=== PATIENT | female | born 1955 ===

== ENCOUNTER 2020-01-06 09:30 | Day surgery (SDC) | payer BC ==
[~2020-01-06 09:30] MED LIST: Acetaminophen 500 MG Tab PO ONE; Gabapentin 300 MG Cap PO ONE; Sodium Chloride 0.9% 10 ML Syringe FLUSH PRN
[2020-01-06] MEDS ORDERED: Midazolam 1 MG/ML 2 ML SDV IV ONE (09:31)
[2020-01-06] MEDS ORDERED: Ketamine 500 mg/10 ML MDV IV ONE (09:31)
[2020-01-06] MEDS ORDERED: Dexamethasone 4 MG/ML 5 ML MDV IVPUSH ONE (09:31)
[2020-01-06] MEDS ORDERED: Propofol 200 MG/20 ML SDV IV ONE (09:31)
[2020-01-06] MEDS ORDERED: Dexmedetomidine 200 MCG/2 ML SDV IV ONE (09:31)
[2020-01-06] MEDS ORDERED: Rocuronium 100 MG/10 ML MDV IV ONE (09:31)
[2020-01-06] MEDS ORDERED: Lidocaine 2% 5 ML SDV INJECT ONE (09:31)
[2020-01-06] MEDS ORDERED: Ondansetron 4 MG/2 ML SDV IVPUSH ONE (09:31)
[2020-01-06] MEDS ORDERED: Phenylephrine 1% 10 MG/ML SDV IV ONE (09:31)
[2020-01-06] MEDS ORDERED: HYDROmorphone 2 MG/ML SDV IV ONE (09:31)
[2020-01-06] MEDS ORDERED: fentaNYL 100 MCG/2 ML SDV IV ONE (09:31)
[2020-01-06] MEDS ORDERED: Lactated Ringers 1,000 ML IV ONE (09:31)
[2020-01-06] MEDS ORDERED: Ketorolac 30 MG/ML SDV IVPUSH ONE (09:31)
[2020-01-06] MEDS ORDERED: ePHEDrine 50 MG/ML SDV IV ONE (09:31)
[2020-01-06] MEDS: Lactated Ringers 1,000 ML IV SCH ×2 (10:52→20:10)
[2020-01-06] MEDS ORDERED: Ropivacaine 49.25 ML, Ketorolac 30 MG, EPINEPHrine 0.5 MG, cloNIDine 80 MCG, Sodium Chl... INJECT SCH ×5 (11:00)
[2020-01-06] MEDS ORDERED: Tranexamic Acid 3,000 MG, Sodium Chloride 0.9% 100 ML IRR ONE ×2 (11:00)
[2020-01-06] MEDS ORDERED: Scopolamine 1.5 MG Transdermal Patch TOP ONE (11:00)
[2020-01-06] MEDS ORDERED: ceFAZolin 2 GM in Premix Bag 1 BAG IV ONE (11:30)
[2020-01-06] MEDS ORDERED: Magnesium Hydroxide 400 MG/5 ML Susp 30 ML Cup PO PRN (12:24)
[2020-01-06] MEDS ORDERED: Ondansetron 4 MG/2 ML SDV IVPUSH PRN (12:24)
[2020-01-06] MEDS ORDERED: Sennosides 8.6 MG Tab PO PRN (12:24)
[2020-01-06] MEDS ORDERED: Naloxone 0.4 MG/ML SDV IVPUSH PRN (12:24)
[2020-01-06] MEDS ORDERED: Sodium Chloride 0.9% 10 ML Syringe FLUSH PRN (12:24)
[2020-01-06] MEDS ORDERED: Morphine 2 MG/ML SYRINGE IVPUSH PRN (12:45)
[2020-01-06] MEDS ORDERED: THROMBIN 5000 UNIT ONE ×3 (13:38→15:29)
[2020-01-06] MEDS ORDERED: Vancomycin 1 GM SDV ONE (15:36)
--- NOTE | 2020-01-06 16:27 | PCM.OPNOTE ---
- General Post-Op/Procedure Note Date of Surgery/Procedure: 01/06/20 Operative Procedure(s): tlif l4-5 Pre Op Diagnosis: spondy L4-5, foraminal stenosis L4-5, L4-5 left radiculopathy Post-Op Diagnosis: Same Anesthesia Technique: General ET Tube Primary Surgeon: Corwin Berrios Anesthesia Provider: Vicki Rico Systems Engineering Manager: Kena Bassett EBL in mLs: 500 Drain/Tube Comments:: wound vac Complications: None Condition: Good
--- NOTE | 2020-01-06 17:45 | OR ---
DATE OF OPERATION: 01/06/2020 SURGEON: Corwin Berrios DO PREOPERATIVE DIAGNOSES: 1. Spondylolisthesis, L4-5. 2. Radiculopathy, left L4-5. 3. Left foraminal stenosis, L4-5. 4. Lateral recess stenosis L4-5 secondary to disk degeneration and synovial cyst. POSTOPERATIVE DIAGNOSES: 1. Spondylolisthesis, L4-5. 2. Radiculopathy, left L4-5. 3. Left foraminal stenosis, L4-5. 4. Lateral recess stenosis L4-5 secondary to disk degeneration and synovial cyst. PROCEDURE: 1. Transforaminal lumbar interbody fusion, L4-5. 2. Laminectomy at L4-5, left required in addition to disk space preparation. 3. Interbody device placement, L4-5. 4. Posterior segmental instrumentation, L4-L5. FRONT OFFICE ADMINISTRATOR: Kena Bassett NP. Nurse practitioner, Kena Bassett NP, played an essential role in assisting in this case, helping to position the patient, retract structures as needed, as well as suturing and cutting sutures as indicated. Her presence improved patient's safety and decreased operative time. ANESTHESIA: Vicki Rico, ZINC PLATING MACHINE OPERATOR, general endotracheal intubation. FLUID: Lactated Ringer solution. ESTIMATED BLOOD LOSS: 500 mL. COMPLICATIONS: None. SPECIMEN: None. DISCHARGE DISPOSITION: Stable to PACU. INSTRUMENTATION: 1. Globus CREO AMP screws 6.5 x 50 bilaterally at L4 and L5. 2. Rise 10 x 26 mm, 8 to 15 mm, 10-degree lordotic implant. Rods are 5.5 x 45 bilaterally with Xemplifi and Signify bone graft in addition to autograft obtained from laminectomy site and facetectomy. HISTORY AND INDICATIONS FOR THE PROCEDURE: The patient was seen preoperatively in the clinic. Preoperative imaging confirmed the above-mentioned diagnosis. Risks and benefits of the procedure were explained to the patient. Informed consent was obtained. DETAILS OF PROCEDURE: The patient was seen preoperatively by myself and Anesthesia staff in the preoperative holding area where the operative site was marked. She was brought to the operative suite by Anesthesia staff where general endotracheal intubation was administered. Sterile Hill catheter was placed. The fluoroscopy unit was draped in a sterile manner. The microscope was draped in a sterile manner. Neuro monitoring leads were placed in normal at baseline and they remained normal throughout the case. The patient was then placed in the prone position on a ProAxis spine bed. She was placed with the head elevated with the flexed waist. All extremities were well padded and her eyes were protected. The patient was then prepped and draped in a sterile manner. Time-out was called identifying the correct patient, correct procedure, the correct site, and the antibiotics were begun within appropriate period of time. Lateral fluoroscopy was used with a Picacho Wand to identify the pedicles of L4 and L5. The midline incision was made from the posterior aspect of L3 to midway of L5 vertebral bodies and then carried down to the deep fascia. Bleeding was controlled during the case with bipolar and Bovie electrocautery. Cerebellars were used for initial retraction. The deep fascia was incised with Bovie electrocautery. A Valencia with Bovie was used to go down along the posterior aspect of the L3 spinous process down to the posterior aspect of the L5 spinous process down the L4 and L5 respectively lamina, facets, and to their transverse processes. We then used a Versa-Trac retractor with 65 mm blades bilaterally. After the bony structures were identified on the right side, I then took a great deal of time making sure that there was no defect from previous surgery, which was known to have happen for a synovial cyst on the left. There was a great deal of space between L4 and L5 consistent with instability from spondylolisthesis and are partially reduced with prone placement. I then focused on screw preparation starting with the left side and then going to the right. The standard procedure was used with identifying the medial border of the pars and then going to the point [facility], at the midway point between the transverse processes. I decorticated part of the facets and then used a PediGuard pedicle probe for placement of the pedicle screws. I could verify good placement on the left and then proceeded with the right. We then tested the screws. The one on the right was found to be 8, the rest above 20. I then took AP views and found that the screw was too lateral to the pedicle and slightly cranial. We then removed that screw and placed Floseal down the tract to prevent any further bleeding. I then readjusted my screw position and then again tested 18. I then focused on my facetectomy using the drill. I then drilled down a transverse and then a longitudinal incision along the left L4 lamina and then used a Valencia to break that off. I was able to remove the inferior facet of L4 and then I used the drill to go through the superior facet of L5 and then removed that using a Valencia. I had to remove a couple of extra layers of bone very slowly to make sure that we did not encounter any dura. After this had been accomplished, I did have some epidural bleeders which did take some time to cauterize with bipolar as well as some bleeders along the transverse processes and pars which were expected. I then bovied along the disk space tear starting at the superior aspect of the L5, pedicle on the left, and then going cranially medially. The L4 nerve root was visualized and protected. I then used D'Krystleico retractor to protect that nerve root and draw more cranial and then incised my disk space with a 15 blade and then used pituitary straight, upgoing and downgoing rongeurs as well as cristóbal to remove the disk, which I took my time to remove as much disk material as possible. I then used the final and place some Signify anteriorly in the disk space and then placed my spacer. I took an AP and thought that this was not medial enough, so I readjusted it and then expanded my spacer which reduced the spondylolisthesis very nicely. Having accomplished our goals, I then controlled any other bleeders. I then decorticated the transverse processes on the right side and prepared the fusion bed. We then irrigated with 3 L of Betadine infused irrigation. I applied autograft from my laminectomy which had been ground up in addition to a combination of Xemplifi and Signify and placed in the right lateral gutter. I decorticated the lamina of L4 and L5 on the right and packed some bone graft in there as well. We then placed some extra Floseal that was left along the left lateral gutter and then applied 3 packs of Avitene for hemostasis after applying some TXA. We then closed the deep fascia with #1 Stratafix in a watertight manner. We then irrigated again. I also applied 0.5 g of vancomycin under the fascia. I then irrigated again and then applied more vancomycin, closed with #2 Stratafix, and then had my assist close with a 3-0 Stratafix followed by placement with a wound VAC and Steri-Strips. The patient was then flipped down to a supine position on her hospital bed and allowed to awaken from general anesthesia. She was taken to the PACU in stable condition. /[id number] SUKUMAR/ED
[2020-01-06] MEDS ORDERED: ceFAZolin 1 GM Vial IVPUSH SCH (20:00)
[2020-01-06] MEDS: Acetaminophen/oxyCODONE 325-5 MG Tab PO PRN (20:28)
[2020-01-06] MEDS: ceFAZolin 2 GM in Premix Bag 1 BAG IV SCH (20:29)
[2020-01-06] MEDS ORDERED: Metoprolol Succinate 25 MG Tab.ER PO SCH (21:00)
[2020-01-06] MEDS ORDERED: Aluminum Hydroxide/Magnesium Hydroxide Susp 30 ML Cup PO PRN (22:43)
[2020-01-07] MEDS: Ketorolac 30 MG/ML SDV IVPUSH SCH ×2 (00:12→07:50)
[2020-01-07] MEDS: Acetaminophen/oxyCODONE 325-5 MG Tab PO PRN ×2 (01:10→06:41)
[2020-01-07] MEDS: ceFAZolin 2 GM in Premix Bag 1 BAG IV SCH (04:30)
[2020-01-07] MEDS: Lactated Ringers 1,000 ML IV SCH (05:24)
[2020-01-07] MEDS ORDERED: Pantoprazole 40 MG Tab.CR PO SCH (06:00)
--- NOTE | 2020-01-07 10:17 | PCM.DCSUM1 ---
Discharge Summary - Hospital Course HPI Initial Comments: 64 yo female with L4-5 spondylolisthesis - Discharge Data Discharge Date: 01/07/20 Discharge Disposition: Home, Self-Care 01 Condition: Good - Referral to Home Health Primary Care Physician: Charles Concepcion MD - Patient Summary/Data Operative Procedure(s) Performed: tlif l4-5 Complications: none Consults: Consultations 01/06/20 12:24 OT Evaluation and Treatment [CONS] Routine Please Evaluate and Treat. OT Reason for Consult: Strengthening This query below is only for informational purposes and is not editable. Admission Diagnosis/Problem: Back pain PT Evaluation and Treatment [CONS] Routine Please Evaluate and Treat. PT Reason for Consult: Strengthening Special Instructions: no bending, lifting, or twisting; brace when oob This query below is only for informational purposes and is not editable. Admission Diagnosis/Problem: Back pain Respiratory Care Assess and Treatment [CONS] Routine Comment: Physician Instructions: Post-op Pneumonia Prevention 01/07/20 09:14 Consult to Physician [CONS] Routine Consulting Provider: Marylu Munroe Call Completed to Consulting Physician: Yes Reason for Consult: hypertension managment Person Notified: Dr. Naqvi Date Notified: 01/06/20 Recommended Follow-up Testing/Procedures: 4 week f/u in clinic - Patient Instructions Diet: Usual Diet as Tolerated Activity: Apply Ice, As Tolerated, Full Weight Bearing, No Lifting Over 10 Pounds, No Strenuous Activities Driving: Do Not Drive Showering/Bathing: May Shower Wound/Incision Care: Keep Operative Site/Wound Site Clean and Dry Wound/Incision, Other: remove wound vac on Monday, replace with aquacell 5 days Notify Provider of: Fever, Increased Pain, Swelling and Redness, Drainage, Nausea and/or Vomiting - Discharge Plan *PRESCRIPTION DRUG MONITORING PROGRAM REVIEWED*: Yes *COPY OF PRESCRIPTION DRUG MONITORING REPORT IN PATIENT JOSE: No Prescriptions/Med Rec: Acetaminophen/oxyCODONE [Percocet 325-5 MG] 1 tab PO Q6HR PRN #28 tablet PRN Reason: Pain Home Medications: Home Meds Cyclobenzaprine [Flexeril] 10 mg PO BEDTIME 01/06/20 [History] Estrogens, Conjugated [Premarin] 0.9 mg PO BEDTIME 01/06/20 [History] Metoprolol Succinate 25 mg PO BEDTIME 01/06/20 [History] Omeprazole 20 mg PO DAILY 01/06/20 [History] Acetaminophen/oxyCODONE [Percocet 325-5 MG] 1 tab PO Q6HR PRN #28 tablet [Rx] Aspirin 975 mg PO ASDIRECTED PRN #0 01/07/20 [Rx] Patient Handouts: Fall Prevention in Hospitals, Adult, Venous Thromboembolism Prevention, Spinal Fusion, Adult Referrals: Corwin Berrios DO [Physician] - - Discharge Summary/Plan Comment DC Time >30 min.: No - General Info Date of Service: 01/07/20 Functional Status: Reports: Pain Controlled, Tolerating Diet, Ambulating, Urinating - Review of Systems General: Reports: No Symptoms HEENT: Reports: No Symptoms Pulmonary: Reports: No Symptoms Cardiovascular: Reports: No Symptoms Gastrointestinal: Reports: No Symptoms Genitourinary: Reports: No Symptoms Musculoskeletal: Reports: Back Pain Skin: Reports: No Symptoms Neurological: Reports: No Symptoms Psychiatric: Reports: No Symptoms - Patient Data Vitals - Most Recent: Last Vital Signs Temp 96.7 F 01/07/20 07:31 Pulse 90 01/07/20 07:31 Resp 20 01/07/20 07:31 BP 134/77 01/07/20 07:31 Pulse Ox 93 L 01/07/20 07:31 Weight - Most Recent: 173 lb 4.8 oz I&O - Last 24 hours: Intake & Output 01/06/20 01/07/20 01/07/20 22:59 06:59 14:59 Intake Total 315 Output Total 1150 Balance 315 -1150 Lab Results - Last 24 hrs: Laboratory Results - last 24 hr 01/06/20 01/06/20 01/06/20 Range/Units 10:10 10:10 10:10 WBC 5.7 (4.5-12.0) X10-3/uL RBC 4.31 (3.23-5.20) x10(6)uL Hgb 12.8 (11.5-15.5) g/dL Hct 38.2 (30.0-51.3) % MCV 88.7 (80-96) fL MCH 29.8 (27.7-33.6) pg MCHC 33.6 (32.2-35.4) g/dL RDW 12.0 (11.5-15.5) % Plt Count 379 H (125-369) X10(3)uL MPV 7.5 (7.4-10.4) fL Neut % (Auto) 51.7 (46-82) % Lymph % (Auto) 34.1 (13-37) % Lane % (Auto) 11.1 (4-12) % Eos % (Auto) 2 (1.0-5.0) % Baso % (Auto) 1 (0-2) % Neut # (Auto) 3.0 (1.6-8.3) # Lymph # (Auto) 1.9 (0.6-5.0) # Lane # (Auto) 0.6 (0.0-1.3) # Eos # (Auto) 0.1 (0.0-0.8) # Baso # (Auto) 0.1 (0.0-0.2) # Sodium 144 (135-145) mmol/L Potassium 4.1 (3.5-5.3) mmol/L Chloride 106 (100-110) mmol/L Carbon Dioxide 29 (21-32) mmol/L BUN 14 (7-18) mg/dL Creatinine 0.9 (0.55-1.02) mg/dL Est Cr Clr Drug Dosing 58.32 mL/min Estimated GFR (MDRD) > 60 (>60) BUN/Creatinine Ratio 15.6 (9-20) Glucose 94 (80-116) mg/dL Calcium 8.7 (8.6-10.2) mg/dL Total Bilirubin 0.2 (0.1-1.3) mg/dL AST 35 H (5-25) IU/L ALT 37 H (12-36) U/L Alkaline Phosphatase 89 (56-112) IU/L Total Protein 6.7 (6.0-8.0) g/dL Albumin 3.2 (3.2-4.6) g/dL Globulin 3.5 g/dL Albumin/Globulin Ratio 0.9 Blood Type B POSITIVE Gel Antibody Screen Negative 01/07/20 01/07/20 Range/Units 06:20 06:20 WBC 9.6 (4.5-12.0) X10-3/uL RBC 3.33 (3.23-5.20) x10(6)uL Hgb 10.0 L (11.5-15.5) g/dL Hct 29.5 L (30.0-51.3) % MCV 88.5 (80-96) fL MCH 30.0 (27.7-33.6) pg MCHC 33.9 (32.2-35.4) g/dL RDW 12.3 (11.5-15.5) % Plt Count 323 (125-369) X10(3)uL MPV 7.8 (7.4-10.4) fL Neut % (Auto) 81.6 (46-82) % Lymph % (Auto) 10.5 L (13-37) % Lane % (Auto) 7.2 (4-12) % Eos % (Auto) 0 L (1.0-5.0) % Baso % (Auto) 1 (0-2) % Neut # (Auto) 7.8 (1.6-8.3) # Lymph # (Auto) 1.0 (0.6-5.0) # Lane # (Auto) 0.7 (0.0-1.3) # Eos # (Auto) 0.0 (0.0-0.8) # Baso # (Auto) 0.1 (0.0-0.2) # Sodium 143 (135-145) mmol/L Potassium 4.1 (3.5-5.3) mmol/L Chloride 107 (100-110) mmol/L Carbon Dioxide 29 (21-32) mmol/L BUN 12 (7-18) mg/dL Creatinine 0.8 (0.55-1.02) mg/dL Est Cr Clr Drug Dosing 65.61 mL/min Estimated GFR (MDRD) > 60 (>60) BUN/Creatinine Ratio 15.0 (9-20) Glucose 112 (80-116) mg/dL Calcium 8.3 L (8.6-10.2) mg/dL Total Bilirubin (0.1-1.3) mg/dL AST (5-25) IU/L ALT (12-36) U/L Alkaline Phosphatase (56-112) IU/L Total Protein (6.0-8.0) g/dL Albumin (3.2-4.6) g/dL Globulin g/dL Albumin/Globulin Ratio Blood Type Gel Antibody Screen Med Orders - Current: Current Medications Al Hydroxide/Mg Hydroxide (Mag-Al Susp) 30 ml PO Q2H PRN PRN Reason: ANTACID Last Admin: 01/06/20 22:58 Dose: 30 ml Diazepam (Valium) 2 mg IVPUSH Q6H PRN PRN Reason: Spasms Estrogens Conjugated (Premarin) 0.9 mg PO BEDTIME [facility] Last Admin: 01/06/20 20:59 Dose: 0.9 mg Lactated Ringer's (Ringers, Lactated) 1,000 mls @ 125 mls/hr IV ASDIRECTED [facility] Last Admin: 01/07/20 05:24 Dose: 125 mls/hr Magnesium Hydroxide (Milk Of Magnesia) 30 ml PO BID PRN PRN Reason: Constipation Metoprolol Succinate (Toprol Xl) 25 mg PO BEDTIME [facility] Last Admin: 01/06/20 20:59 Dose: 25 mg Morphine Sulfate (Morphine) 2 mg IVPUSH Q2H PRN PRN Reason: PAIN Last Admin: 01/06/20 17:55 Dose: 2 mg Naloxone HCl (Narcan) 0.2 mg IVPUSH ONETIME PRN PRN Reason: Oversedation Ondansetron HCl (Zofran) 8 mg IVPUSH Q6H PRN PRN Reason: Nausea/Vomiting Oxycodone/Acetaminophen (Percocet 325-5 Mg) 2 tab PO Q4H PRN PRN Reason: Pain Last Admin: 01/07/20 06:41 Dose: 2 tab Pantoprazole Sodium (Protonix) 40 mg PO DAILY@0600 [facility] Last Admin: 01/07/20 06:24 Dose: 40 mg Senna (Senna) 8.6 mg PO BID PRN PRN Reason: Constipation Sodium Chloride (Saline Flush) 10 ml FLUSH ASDIRECTED PRN PRN Reason: Keep Vein Open Sodium Chloride (Saline Flush) 10 ml FLUSH ASDIRECTED PRN PRN Reason: Keep Vein Open Discontinued Medications Acetaminophen (Tylenol Extra Strength) 1,000 mg PO ONETIME ONE Stop: 01/06/20 09:31 Last Admin: 01/06/20 10:13 Dose: 1,000 mg Ropivacaine 49.25 ml/Ketorolac Tromethamine 30 mg/Epinephrine HCl 0.5 mg/ Clonidine HCl 80 mcg/ Sodium Chloride 48.45 ml 0 ml INJECT ASDIRECTED [facility] Stop: 01/06/20 13:00 Last Admin: 01/06/20 14:25 Dose: 100 syringe Tranexamic Acid 3,000 mg/ (Sodium Chloride 100 ml) 0 mg IRR ONETIME ONE Stop: 01/06/20 11:01 Last Admin: 01/06/20 14:27 Dose: 100 irr Gabapentin (Neurontin) 300 mg PO ONETIME ONE Stop: 01/06/20 09:31 Last Admin: 01/06/20 10:15 Dose: 300 mg Cefazolin Sodium/Dextrose 2 gm (/ Premix) 50 mls @ 100 mls/hr IV ONETIME ONE Stop: 01/06/20 11:59 Last Admin: 01/06/20 10:53 Dose: 100 mls/hr Cefazolin Sodium/Dextrose 2 gm (/ Premix) 50 mls @ 100 mls/hr IV Q8H [facility] Stop: 01/07/20 04:29 Last Admin: 01/07/20 04:30 Dose: 100 mls/hr Ketorolac Tromethamine (Toradol) 30 mg IVPUSH Q8H [facility] Stop: 01/07/20 08:01 Last Admin: 01/07/20 07:50 Dose: 30 mg Scopolamine (Transderm-Scop) 1.5 mg TOP ONETIME ONE Stop: 01/06/20 11:01 Last Admin: 01/06/20 10:12 Dose: 1.5 mg Thrombin (Recothrom) 20,000 unit .XX .STK-MED ONE Stop: 01/06/20 15:30 Last Admin: 01/06/20 15:29 Dose: 20,000 unit Vancomycin HCl (Vancomycin) 1 gm .XX .STK-MED ONE Stop: 01/06/20 15:37 Last Admin: 01/06/20 15:36 Dose: 1 gm - Exam General: Reports: Alert HEENT: Reports: Pupils Equal, Pupils Reactive, EOMI, Mucous Membr. Moist/[place] Neck: Reports: Supple, Trachea Midline Lungs: Reports: Normal Respiratory Effort GI/Abdominal Exam: No Distention Back Exam: Reports: Paraspinal Tenderness Skin: Reports: Warm, Dry, Intact Wound/Incisions: Reports: Healing Well, Dressing Dry and Intact, Drainage Neurological: Reports: No New Focal Deficit Psy/Mental Status: Reports: Alert, Normal Affect, Normal Mood Discharge Operative/Procedures - Procedures Performed Operations: L4-5 TLIF LP Indication: CSF analysis Arterial Line Indication: hemodynamic monitoring Chest Tube Indication: pneumothorax Thoracentesis Indication: pleural effusion Paracentesis Indication: ascites
--- NOTE | 2020-01-07 10:17 | CR ---
INDICATION: Post-op fusion lumbar spine. LUMBOSACRAL SPINE: Frontal and lateral views with a lateral spot of the lumbosacral area reveal a fusion at the L4-5 level with rods and pedicle screws and a mechanical disk spacer in place with suggestion of fairly good position and alignment. No complicating process could be identified. What appears to be bone graft material is noted. IMPRESSION: Satisfactory appearance post-op lumbar fusion. DIONISIO
--- NOTE | 2020-01-07 10:19 | CR ---
INDICATION: Guidance for lumbar surgery. C-ARM IN OR LESS THAN 1 HOUR: 0.8 minutes C-arm fluoroscopy time was utilized in OR for guidance during L4-5 fusion. Spot C-arm images were obtained. Final images showed satisfactory position and alignment of rods and pedicle screws without a definite complicating process. Disk spacer noted in place. IMPRESSION: Final images show good position and alignment of vertebral elements post fusion with expanded L4-5 disk space. MTDD
--- NOTE | 2020-01-07 12:15 | PCM.CONS ---
H&P History of Present Illness - General Date of Service: 01/07/20 Admit Problem/Dx: L4-5 spondylolisthesis POD #1, consult for medical management. Patient is on Metoprolol for cardiac arrhythmia, had stress echo a few years ago that showed mitral valve prolapse but had echo again in Nov 2019 which did not show the prolapse. 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 in Oct, no changes to her medications. Her blood pressure is 120s/80s at home, usually higher when in clinic. Denies any fevers, chills, cough, shortness of breath, chest pain. No nausea or vomiting. Passed gas, had bowel movement yesterday. No dysuria, frequency or hematuria. Has been walking 500 feet, did the stairs [address] Berrios is discharging today. Sees Dr Concepcion once a year usually. Left Leg Pain Score (Numeric/FACES): 8 back Pain Score (Numeric/FACES): 6 - Related Data Allergies/Adverse Reactions: Allergies Allergy/AdvReac Type Severity Reaction Status Date / Time Sulfa (Sulfonamide Allergy Unknown Rash Verified 01/02/20 13:26 Antibiotics) naproxen Allergy Itching Verified 01/02/20 13:27 [From Aleve Cold and Sinus] pseudoephedrine Allergy Itching Verified 01/02/20 13:27 [From Aleve Cold and Sinus] Home Medications: Home Meds Cyclobenzaprine [Flexeril] 10 mg PO BEDTIME 01/06/20 [History] Estrogens, Conjugated [Premarin] 0.9 mg PO BEDTIME 01/06/20 [History] Metoprolol Succinate 25 mg PO BEDTIME 01/06/20 [History] Omeprazole 20 mg PO DAILY 01/06/20 [History] Acetaminophen/oxyCODONE [Percocet 325-5 MG] 1 tab PO Q6HR PRN #28 tablet [Rx] Aspirin 975 mg PO ASDIRECTED PRN #0 01/07/20 [Rx] Past Medical History HEENT History: Reports: Impaired Vision Cardiovascular History: Reports: Arrhythmia Respiratory History: Reports: Bronchitis, Recurrent Gastrointestinal History: Reports: GERD Genitourinary History: Reports: Other (See Below) Other Genitourinary History: VAGINITIS 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 OB/BYN History: II PARA II Musculoskeletal History: Reports: Other (See Below) Other Musculoskeletal History: CHRONIC RIGHT LEG PAIN ET WEAKNESS ET NUMBNESS Neurological History: Reports: None Psychiatric History: Reports: None Hematologic History: Reports: None Oncologic (Cancer) History: Reports: None - Infectious Disease History Infectious Disease History: Reports: Chicken Pox, Measles - Past Surgical History Head Surgeries/Procedures: Reports: None HEENT Surgical History: Reports: Tonsillectomy Respiratory Surgical History: Reports: Other (See Below) Other Respiratory Surgeries/Procedures: THRACOSCOPY GI Surgical History: Reports: Colonoscopy Female Surgical History: Reports: Breast Biopsy, Hysterectomy, Salpingo- Oophorectomy Other Female Surgeries/Procedures: LEFT OOPHERECTOMY, LEFT BREAST INFECTED LUMP REMOVAL Neurological Surgical History: Reports: C-Spine, Laminectomy, Other (See Below) Other Neurological Surgeries/Procedures: THERAPEUTIC NERVE BLOCKS. L4-5 LUMBAR LAMINECTOMY AND REMOVAL OF CYST. STATES HAS RODS IN NECK. SURGERY DONE AT [place], [place] Social & Family History - Family History Family Medical History: Noncontributory - Tobacco Use Smoking Status *Q: Former Smoker Years of Tobacco use: 30 Packs/Tins Daily: 1 - Caffeine Use Caffeine Use: Reports: Coffee - Alcohol Use Days Per Week of Alcohol Use: 7 Number of Drinks Per Day: 2 Total Drinks Per Week: 14 - Recreational Drug Use Recreational Drug Use: No Drug Use in Last 12 Months: No H&P Review of Systems - Review of Systems: Review Of Systems: Comprehensive ROS is negative, except as noted in HPI. Exam - Exam Exam: See Below - Vital Signs Vital Signs: Last Vital Signs Temp 96.7 F 01/07/20 07:31 Pulse 90 01/07/20 07:31 Resp 20 01/07/20 07:31 BP 134/77 01/07/20 07:31 Pulse Ox 93 L 01/07/20 07:31 Weight: 173 lb 4.8 oz - Exam General: Alert, Oriented, Cooperative. No: Mild Distress Neck: Trachea Midline Lungs: Clear to Auscultation, Normal Respiratory Effort Cardiovascular: Regular Rate, Regular Rhythm, Normal S1, Normal S2. No: Systolic Murmur GI/Abdominal Exam: Normal Bowel Sounds, Soft, Non-Tender, No Distention Extremities: No Pedal Edema Peripheral Pulses: 2+: Radial (L), Radial (R), Dorsalis Pedis (L), Dorsalis Pedis (R) Skin: Warm Psychiatric: Normal Affect, Normal Mood - Patient Data Lab Results Last 24 hrs: Laboratory Results - last 24 hr 01/07/20 01/07/20 Range/Units 06:20 06:20 WBC 9.6 (4.5-12.0) X10-3/uL RBC 3.33 (3.23-5.20) x10(6)uL Hgb 10.0 L (11.5-15.5) g/dL Hct 29.5 L (30.0-51.3) % MCV 88.5 (80-96) fL MCH 30.0 (27.7-33.6) pg MCHC 33.9 (32.2-35.4) g/dL RDW 12.3 (11.5-15.5) % Plt Count 323 (125-369) X10(3)uL MPV 7.8 (7.4-10.4) fL Neut % (Auto) 81.6 (46-82) % Lymph % (Auto) 10.5 L (13-37) % [place] % (Auto) 7.2 (4-12) % Eos % (Auto) 0 L (1.0-5.0) % Baso % (Auto) 1 (0-2) % Neut # (Auto) 7.8 (1.6-8.3) # Lymph # (Auto) 1.0 (0.6-5.0) # [place] # (Auto) 0.7 (0.0-1.3) # Eos # (Auto) 0.0 (0.0-0.8) # Baso # (Auto) 0.1 (0.0-0.2) # Sodium 143 (135-145) mmol/L Potassium 4.1 (3.5-5.3) mmol/L Chloride 107 (100-110) mmol/L Carbon Dioxide 29 (21-32) mmol/L BUN 12 (7-18) mg/dL Creatinine 0.8 (0.55-1.02) mg/dL Est Cr Clr Drug Dosing 65.61 mL/min Estimated GFR (MDRD) > 60 (>60) BUN/Creatinine Ratio 15.0 (9-20) Glucose 112 (80-116) mg/dL Calcium 8.3 L (8.6-10.2) mg/dL Result Diagrams: 01/07/20 06:20 01/07/20 06:20 Sepsis Event Note - Evaluation Sepsis Screening Result: No Definite Risk - Focused Exam Vital Signs: Vital Signs Temp Pulse Resp BP Pulse Ox 01/07/20 07:31 96.7 F 90 20 134/77 93 L Date Exam was Performed: 01/07/20 Time Exam was Performed: 12:10 Consult PN Assessment/Plan POD#: 1 Procedures: Procedures MRI LUMBAR SPINE W/O DYE (12/12/19) MRI NECK SPINE W/O DYE (03/12/15) X-RAY EXAM L-2 SPINE 4/>VWS (12/12/19) (1) Chronic cardiac arrhythmia SNOMED Code(s): 185902035, 944515916 Code(s): I49.9 - CARDIAC ARRHYTHMIA, UNSPECIFIED Current Visit: Yes (2) Spondylolisthesis at L4-L5 level SNOMED Code(s): 444640324 Code(s): M43.16 - SPONDYLOLISTHESIS, LUMBAR REGION Current Visit: Yes (3) Status post lumbar surgery SNOMED Code(s): 968971510, 292574885, 614933719 Code(s): Z98.890 - OTHER SPECIFIED POSTPROCEDURAL STATES Current Visit: Yes Problem List Initiated/Reviewed/Updated: Yes Plan: No changes to home medications. Medical cleared for discharge. Instructed patient on signs of pneumonia, urinary tract infection. Follow up with Dr Concepcion as needed. Follow up with Dr Berrios as scheduled. Requesting Provider: Rob Berrios MD Date Consult Requested: 01/07/20 Reason for Consult: medical managment arrhythmia Patient History Reviewed: Yes Admission H&P Reviewed: Yes Consult Result/Summary:: No changes to current medication. Cleared for discharge from medical standpoint. Discussed using pillow if she coughs to help splint. Report any dysuria, frequency or constipation to PCP. Recheck with Dr Berrios as scheduled. Notified Requestor: Yes
== END 2020-01-07 12:55 | disposition home or self-care (01) ==
LOC: FB.SDS 09:30 → FB.MS 17:35 → FB.SDS 01-07 12:55
PROVIDERS: ATTEND Orthopaedic Surgery
DX: M48.061 Spinal stenosis, lumbar region without neurogenic claudication (principal); M43.16 Spondylolisthesis, lumbar region; M51.16 Intervertebral disc disorders with radiculopathy, lumbar region; M71.38 Other bursal cyst, other site; I25.10 Atherosclerotic heart disease of native coronary artery without angina pectoris; K21.9 Gastro-esophageal reflux disease without esophagitis; Z87.891 Personal history of nicotine dependence; Z79.82 Long term (current) use of aspirin; Z79.899 Other long term (current) drug therapy; Z88.2 Allergy status to sulfonamides; Z88.6 Allergy status to analgesic agent
CPT/HCPCS: 20936; 22630; 22842; 36415; 72100; 76000; 80048; 80053; 85025; 86850; 86900; 86901; 94150; 97161; 97166; A9270; C1713; C1776; J0171; J0690; J0735; J1100; J1170; J1885; J2001; J2250; J2270; J2370; J2405; J2704; J2795; J3010; J3370; J7050; J7120